=== PATIENT | male | born 1975 | race Caucasian/White ===

== ENCOUNTER 2017-05-29 11:33 | Emergency (ER) | payer SELFPAY ==
[2017-05-29 11:54] VITALS: BP 109/68
[2017-05-29] MEDS ORDERED: Albuterol/Ipratropium 3.0-0.5 MG/3 ML Neb Soln NEB ONE (12:04)
--- NOTE | 2017-05-29 12:07 | EDM.PDOC ---
ED HPI GENERAL MEDICAL PROBLEM - General Chief Complaint: Respiratory Problem Stated Complaint: COUGH Time Seen by Provider: 05/29/17 11:34 - History of Present Illness INITIAL COMMENTS - FREE TEXT/NARRATIVE: HISTORY AND PHYSICAL: History of present illness: Patient 41-year-old white male presents with a concern of cough with blood- tinged sputum he states he had this over the last several days he is a smoker he denies fever chills nausea vomiting or other concern. He has used a vaporizer at home with improvement Review of systems: As per history of present illness and below otherwise all systems reviewed and negative. Past medical history: As per history of present illness and as reviewed below otherwise noncontributory. Surgical history: As per history of present illness and as reviewed below otherwise noncontributory. Social history: No reported history of drug or alcohol abuse. Family history: As per history of present illness and as reviewed below otherwise noncontributory. Physical exam: HEENT: Atraumatic, normocephalic, pupils reactive, negative for conjunctival pallor or scleral icterus, mucous membranes moist, throat clear, neck supple, nontender, trachea midline. Lungs: Coarse rare end expiratory wheezing, breath sounds equal bilaterally, chest nontender. Heart: S1S2, regular, negative for clicks, rubs, or JVD. Abdomen: Soft, nondistended, nontender. Negative for masses or hepatosplenomegaly. Negative for costovertebral tenderness. Pelvis: Stable nontender. Genitourinary: Deferred. Rectal: Deferred. Extremities: Atraumatic, negative for cords or calf pain. Neurovascular unremarkable. Neuro: Awake, alert, oriented. Cranial nerves II through XII unremarkable. Cerebellum unremarkable. Motor and sensory unremarkable throughout. Exam nonfocal. Diagnostics: Chest x-ray Therapeutics: Albuterol Ipratropium nebulizer Impression: #1 pneumonitis Definitive disposition and diagnosis as appropriate pending reevaluation and review of above. Bilateral Chest Pain Score (Numeric/FACES): 7 - Related Data Allergies Allergy/AdvReac Type Severity Reaction Status Date / Time codeine Allergy Hives Verified 12/03/15 10:14 Home Meds: Home Meds Levothyroxine Sodium [Synthroid] 100 mcg PO DAILY 11/12/15 [History] Past Medical History - Past Health History Medical/Surgical History: Denies Medical/Surgical History HEENT History: Reports: None Cardiovascular History: Reports: None Respiratory History: Reports: None Gastrointestinal History: Reports: None Genitourinary History: Reports: None Musculoskeletal History: Reports: Fracture Neurological History: Reports: None Psychiatric History: Reports: None Endocrine/Metabolic History: Reports: Hypothyroidism Hematologic History: Reports: None - Infectious Disease History Infectious Disease History: Reports: Chicken Pox - Past Surgical History GI Surgical History: Reports: None Male Surgical History: Reports: None Other Musculoskeletal Surgeries/Procedures:: left hip repair x5, right hand proceedurcs x4, Dermatological Surgical History: Reports: Plastic Surgical Reconstruction/Repair Social & Family History - Family History Family Medical History: Noncontributory - Tobacco Use Smoking Status *Q: Current Every Day Smoker Years of Tobacco use: 15 Packs/Tins Daily: 0.5 - Caffeine Use Caffeine Use: Reports: Coffee - Recreational Drug Use Recreational Drug Use: No ED ROS GENERAL - Review of Systems Review Of Systems: ROS reveals no pertinent complaints other than HPI. ED EXAM, GENERAL - Physical Exam Exam: See Below (The dictation) Course - Vital Signs Last Recorded V/S: Last Vital Signs Temp 36.6 C 05/29/17 11:51 Pulse 82 05/29/17 11:51 Resp 18 05/29/17 11:51 BP 109/68 05/29/17 11:51 Pulse Ox 97 05/29/17 12:05 - Orders/Labs/Meds Orders: Active Orders 24 hr Category Date Time Status RT Aerosol Therapy [RC] ASDIRECTED Care 05/29/17 12:05 Active Meds: Medications Discontinued Medications Generic Name Dose Route Start Last Admin Trade Name Basilio PRN Reason Stop Dose Admin Albuterol/Ipratropium 3 ml 05/29/17 12:04 05/29/17 12:10 Duoneb 3.0-0.5 Mg/3 Ml NEB 05/29/17 12:05 3 ml ONETIME ONE Administration Departure - Departure Time of Disposition: 12:06 Disposition: Home, Self-Care 01 Condition: Good Clinical Impression: Pneumonitis - Discharge Information Instructions: Pneumonitis Referrals: Coty Alvarez NP [Primary Care Provider] - Forms: ED Department Discharge Additional Instructions: The following information is given to patients seen in the emergency department who are being discharged to home. This information is to outline your options for follow-up care. We provide all patients seen in our emergency department with a follow-up referral. The need for follow-up, as well as the timing and circumstances, are variable depending upon the specifics of your emergency department visit. If you don't have a primary care physician on staff, we will provide you with a referral. We always advise you to contact your personal physician following an emergency department visit to inform them of the circumstance of the visit and for follow-up with them and/or the need for any referrals to a consulting specialist. The emergency department will also refer you to a specialist when appropriate. This referral assures that you have the opportunity for followup care with a specialist. All of these measure are taken in an effort to provide you with optimal care, which includes your followup. Under all circumstances we always encourage you to contact your private physician who remains a resource for coordinating your care. When calling for followup care, please make the office aware that this follow-up is from your recent emergency room visit. If for any reason you are refused follow-up, please contact the [facility] emergency department at and asked to speak to the emergency department charge nurse. [facility] [address] [place] [address] Albuterol Augmentin as prescribed stop smoking follow-up primary medical doctor and/or clinic as discussed return as needed as discussed - My Orders Last 24 Hours: My Active Orders 05/29/17 12:05 RT Aerosol Therapy [RC] ASDIRECTED - Assessment/Plan Last 24 Hours: My Active Orders 05/29/17 12:05 RT Aerosol Therapy [RC] ASDIRECTED
--- NOTE | 2017-05-29 12:49 | CR ---
EXAMINATION: Portable chest radiograph. HISTORY: Shortness of breath. FINDINGS: The trachea is midline. The cardiomediastinal silhouette is within normal limits. No pulmonary infilt rates, effusions or pneumothorax. Osseous structures appear unremarkable. IMPRESSION: No acute cardiopulmonary process.
== END 2017-05-29 13:00 | disposition home or self-care (01) ==
LOC: MW.ED 11:33
DX: J18.9 Pneumonia, unspecified organism (principal); F17.210 Nicotine dependence, cigarettes, uncomplicated; E03.9 Hypothyroidism, unspecified; Z79.899 Other long term (current) drug therapy; Z88.5 Allergy status to narcotic agent
CPT/HCPCS: 71045; 71045-26; 94640; 99283; 99283-25

== ENCOUNTER 2019-12-14 09:20 | Emergency (ER) | payer BC ==
[2019-12-14] MEDS ORDERED: Acetaminophen 500 MG Tab PO ONE (09:40)
[2019-12-14] MEDS ORDERED: Ketorolac 30 MG/ML SDV IM ONE (09:40)
--- NOTE | 2019-12-14 10:10 | EDM.PDOC ---
ED HPI GENERAL MEDICAL PROBLEM - General Chief Complaint: General Stated Complaint: wants xrays for ribs Time Seen by Provider: 12/14/19 09:25 Source of Information: Reports: Patient History Limitations: Reports: No Limitations - History of Present Illness INITIAL COMMENTS - FREE TEXT/NARRATIVE: HISTORY AND PHYSICAL: History of present illness: Patient is a 44-year-old male who presents to the emergency room with complaints of right sided rib pain. He states 2 weeks ago he was bending over to pet his dog when he sneezed at the same time and this caused immediate pain to his right lower ribs. Since that time he has had pain that has not resolved, he is here today requesting a x-ray. Patient denies any fever, chills, headache, change in vision, syncope or near syncope. Denies any chest pain, back pain, shortness of breath or cough. Denies any abdominal pain, nausea, vomiting, diarrhea, constipation or dysuria. Has not noted any blood in urine or stool. Patient has been eating and drinking appropriately. Review of systems: As per history of present illness and below otherwise all systems reviewed and negative. Past medical history: As per history of present illness and as reviewed below otherwise noncontributory. Surgical history: As per history of present illness and as reviewed below otherwise noncontributory. Social history: See social history for further information Family history: As per history of present illness and as reviewed below otherwise noncontributory. Physical exam: General: Well developed and well nourished 44-year-old male. Alert and orientated x 3. Nontoxic in appearance and in no acute distress. Vital signs are stable and have been reviewed by me. Nursing notes were reviewed. HEENT: Atraumatic, normocephalic, pupils equal and reactive bilaterally, negative for conjunctival pallor or scleral icterus, mucous membranes moist, TMs normal bilaterally, throat clear, neck supple, nontender, trachea midline. No drooling or trismus noted. No meningeal signs. No hot potato voice noted. Lungs: Clear to auscultation, breath sounds equal bilaterally, chest tender to right lower anterior chest wall. Normal work of breathing, no accessory muscles used. Heart: S1S2, regular rate and rhythm without overt murmur Abdomen: Soft, nondistended, nontender. Negative for masses or hepatosplenomegaly. Negative for costovertebral tenderness. Skin: Intact, warm, dry. No lesions or rashes noted. Hematologic: No petechiae or purpra. Mucosa appropriate color and normal nail bed color and refill. Extremities: Atraumatic, moves all extremities per self without difficulty or deficits, negative for cords or calf pain. Neurovascular unremarkable. Neuro: Awake, alert, oriented. Cranial nerves II through XII unremarkable. Cerebellum unremarkable. Motor and sensory unremarkable throughout. Exam nonfocal. Psychiatric: Mood and affect are appropriate. Normal thought process. Answering questions appropriately. Notes: X-ray shows no fractures or acute process. Feels improved after the IM injections. I have spoken with the patient/caregiver and discussed today's findings, in addition to providing specific details for plan of care. Reassessment at the time of disposition demonstrates that the patient is in no acute distress. The patient is stable for discharge, counseling was provided and we discussed in great detail signs and symptoms that would prompt them to return to the Emergency Department. Medication, follow up and supportive care measures were reviewed and discussed. Voices understanding and is agreeable to plan of care. Denies any further questions or concerns at this time. Diagnostics: Chest x-ray with rib detail Therapeutics: Acetaminophen, Toradol IM Prescription: Diclofenac, flexeril Impression: Right rib injury Plan: 1. Today your x-ray shows no fractures. Make sure you use the incentive spirometer every 4-6 hours while awake, x 8-10 rounds (prevent lung injury/infection). 2. You can alternate Tylenol and ibuprofen as needed for pain management. Prescription as directed (at [facility]) 3. We encourage you to follow up with your primary care provider and/or recommended specialist in the next few days for re-evaluation and further care/management. If your symptoms should worsen, new symptoms develop or any of the signs and symptoms we discussed should arise please return to the emergency room or call 911 (if needed). Definitive disposition and diagnosis as appropriate pending reevaluation and review of above. right rib Pain Score (Numeric/FACES): 8 - Related Data Allergies Allergy/AdvReac Type Severity Reaction Status Date / Time codeine Allergy Hives Verified 12/14/19 09:47 Home Meds: Home Meds Levothyroxine Sodium [Synthroid] 100 mcg PO DAILY 11/12/15 [History] Cyclobenzaprine [Flexeril] 10 mg PO TID PRN #21 tab 12/14/19 [Rx] Diclofenac Sodium [Voltaren] 75 mg PO BIDMEALS PRN #30 tab.cr 12/14/19 [Rx] buPROPion [buPROPion XL] 150 mg PO DAILY 12/14/19 [History] Past Medical History - Past Health History Medical/Surgical History: Denies Medical/Surgical History HEENT History: Reports: None Cardiovascular History: Reports: None Respiratory History: Reports: None Gastrointestinal History: Reports: None Genitourinary History: Reports: None Musculoskeletal History: Reports: Fracture Neurological History: Reports: None Psychiatric History: Reports: None Endocrine/Metabolic History: Reports: Hypothyroidism Hematologic History: Reports: None - Infectious Disease History Infectious Disease History: Reports: Chicken Pox - Past Surgical History GI Surgical History: Reports: None Male Surgical History: Reports: None Other Musculoskeletal Surgeries/Procedures:: left hip repair x5, right hand proceedurcs x4, Dermatological Surgical History: Reports: Plastic Surgical Reconstruction/Repair Social & Family History - Family History Family Medical History: Noncontributory - Tobacco Use Smoking Status *Q: Current Every Day Smoker Years of Tobacco use: 14 Packs/Tins Daily: 0.5 - Caffeine Use Caffeine Use: Reports: Coffee - Recreational Drug Use Recreational Drug Use: No ED ROS GENERAL - Review of Systems Review Of Systems: Comprehensive ROS is negative, except as noted in HPI. ED EXAM, GENERAL - Physical Exam Exam: See Below (See dictation) Course - Vital Signs Last Recorded V/S: Last Vital Signs Temp 98.1 F 12/14/19 09:45 Pulse 71 12/14/19 09:45 Resp 16 12/14/19 09:45 BP 115/75 12/14/19 09:45 Pulse Ox 98 12/14/19 09:45 - Orders/Labs/Meds Orders: Active Orders 24 hr Category Date Time Status Incentive Spirometry [RT Incentive Spirometry] [RC] Care 12/14/19 10:31 Ordered ASDIRECTED Meds: Medications Discontinued Medications Generic Name Dose Route Start Last Admin Trade Name Freq PRN Reason Stop Dose Admin Acetaminophen 1,000 mg 12/14/19 09:40 Tylenol Extra Strength PO 12/14/19 09:41 ONETIME ONE Ketorolac Tromethamine 30 mg 12/14/19 09:40 Toradol IM 12/14/19 09:41 ONETIME ONE Ketorolac Tromethamine 60 mg 12/14/19 10:11 12/14/19 10:23 Toradol IM 12/14/19 10:12 60 mg ONETIME ONE Administration Orphenadrine Citrate 60 mg 12/14/19 10:11 12/14/19 10:22 Norflex IM 12/14/19 10:12 60 mg ONETIME ONE Administration Departure - Departure Time of Disposition: 10:35 Disposition: Home, Self-Care 01 Clinical Impression: Rib injury - Discharge Information Prescriptions: Cyclobenzaprine [Flexeril] 10 mg PO TID PRN #21 tab PRN Reason: Muscle Spasm Diclofenac Sodium [Voltaren] 75 mg PO BIDMEALS PRN #30 tab.cr PRN Reason: Pain Referrals: PCP,None [Primary Care Provider] - Forms: ED Department Discharge Additional Instructions: The following information is given to patients seen in the emergency department who are being discharged to home. This information is to outline your options for follow-up care. We provide all patients seen in our emergency department with a follow-up referral. The need for follow-up, as well as the timing and circumstances, are variable depending upon the specifics of your emergency department visit. If you don't have a primary care physician on staff, we will provide you with a referral. We always advise you to contact your personal physician following an emergency department visit to inform them of the circumstance of the visit and for follow-up with them and/or the need for any referrals to a consulting specialist. The emergency department will also refer you to a specialist when appropriate. This referral assures that you have the opportunity for follow-up care with a specialist. All of these measure are taken in an effort to provide you with optimal care, which includes your follow-up. Under all circumstances we always encourage you to contact your private physician who remains a resource for coordinating your care. When calling for follow-up care, please make the office aware that this follow-up is from your recent emergency room visit. If for any reason you are refused follow-up, please contact the Emergency Department at and asked to speak to the emergency department charge nurse. Primary Care [address] [place] [id number] [facility] [address] [place] [id number] Thank you for choosing the [facility] emergency department in [place] for your medical needs today. It was a pleasure caring for you. Today you were seen in the emergency department for rib pain. 1. Today your x-ray shows no fractures or infection. Make sure you use the incentive spirometer every 4-6 hours while awake, x 8-10 rounds (prevent lung injury/infection). 2. You can alternate Tylenol and ibuprofen as needed for pain management. Prescription as directed (at [facility]) 3. We encourage you to follow up with your primary care provider and/or recommended specialist in the next few days for re-evaluation and further care/management. If your symptoms should worsen, new symptoms develop or any of the signs and symptoms we discussed should arise please return to the emergency room or call 911 (if needed). Sepsis Event Note (ED) - Evaluation Sepsis Screening Result: No Definite Risk - Focused Exam Vital Signs: Vital Signs Temp Pulse Resp BP Pulse Ox 12/14/19 09:45 98.1 F 71 16 115/75 98 - My Orders Last 24 Hours: My Active Orders 12/14/19 10:31 Incentive Spirometry [RT Incentive Spirometry] [RC] ASDIRECTED - Assessment/Plan Last 24 Hours: My Active Orders 12/14/19 10:31 Incentive Spirometry [RT Incentive Spirometry] [RC] ASDIRECTED
[2019-12-14] MEDS ORDERED: Ketorolac 60 MG/2 ML SDV IM ONE (10:11)
[2019-12-14] MEDS ORDERED: Orphenadrine 60 MG/2 ML Inj IM ONE (10:11)
--- NOTE | 2019-12-14 10:21 | CR ---
Indication: Rib pain after coughing for 2 weeks. Technique: PA view of the chest. Two views of the right ribs. Comparison: May 29, 2017. Findings: The heart is normal in size. The lungs are clear. No infiltrate, pleural effusion, or pneumothorax is identified. No displaced right rib fractures are identified. Impression: No displaced right rib fractures. No acute cardiopulmonary process Dictated by Saritha Whiteside MD @ Dec 14 2019 10:16AM Signed by Dr. Saritha Whiteside @ Dec 14 2019 10:19AM
[2019-12-14 16:01] VITALS: BP 130/78; PULSE 68
== END 2019-12-14 11:14 | disposition home or self-care (01) ==
LOC: MW.ED 09:20
DX: S29.9XXA Unspecified injury of thorax, initial encounter (principal); E03.9 Hypothyroidism, unspecified; F17.210 Nicotine dependence, cigarettes, uncomplicated; Z88.5 Allergy status to narcotic agent; Z79.899 Other long term (current) drug therapy; X58.XXXA Exposure to other specified factors, initial encounter
CPT/HCPCS: 71101; 96372; 99283; J1885; J2360

== ENCOUNTER 2023-03-20 05:16 | Emergency (ER) | payer SELFPAY ==
[2023-03-20] MEDS ORDERED: Ketorolac 30 MG/ML SDV IM STA (05:23)
[2023-03-20] MEDS ORDERED: Lidocaine 4% 1 each Patch TOP STA (05:27)
[2023-03-20 06:16] VITALS: BP 132/83; PULSE 78
== END 2023-03-20 06:16 | disposition home or self-care (01) ==
LOC: MW.ED 05:16
DX: R07.81 Pleurodynia (principal); Z88.5 Allergy status to narcotic agent
CPT/HCPCS: 71101; 96372; 99283; A9270; J1885

== ENCOUNTER 2024-04-27 04:52 | Emergency (ER) | payer OTHER ==
[2024-04-27] MEDS: Fluorescein 1 MG Ophth Strip EYEBOTH ONE (05:02)
[2024-04-27] MEDS: Tetracaine HCl/PF 0.5% 4 ML Bottle EYEBOTH ONE (05:02)
[2024-04-27 05:53] VITALS: BP 103/67; PULSE 67
== END 2024-04-27 05:46 | disposition home or self-care (01) ==
LOC: MW.ED 04:52
DX: S05.02XA Injury of conjunctiva and corneal abrasion without foreign body, left eye, initial encounter (principal); E03.9 Hypothyroidism, unspecified; F17.210 Nicotine dependence, cigarettes, uncomplicated; Z79.890 Hormone replacement therapy; Z88.6 Allergy status to analgesic agent; Z75.8 Other problems related to medical facilities and other health care; X58.XXXA Exposure to other specified factors, initial encounter
CPT/HCPCS: 99283; J3490